=== PATIENT | male | born 1975 | race American Indian/Alaskan Native ===

== ENCOUNTER 2019-04-27 22:07 | Emergency (ER) | payer SELFPAY ==
[2019-04-27 23:09] LABS: Basophils % (Auto) 0.5 % (0.0-1.8); Eosinophils # (Auto) 0.1 K/mm3 (0.0-0.4); Eosinophils % (Auto) 0.9 % (0.0-4.3); Hematocrit 44.2 % (35.5-45.6); Hemoglobin 14.8 gm/dl (11.8-15.2); Lymphocytes # (Auto) 1.6 K/mm3 (1.2-5.4); Lymphocytes % (Auto) 20.8 % (13.4-35.0); Mean Corpuscular HGB Conc 34 % (32-34); Mean Corpuscular Volume 84 fl (84-94); Monocytes # (Auto) 0.9 K/mm3 (0.0-0.8); Monocytes % (Auto) 11.7 % (0.0-7.3); Platelet Count 183 K/mm3 (140-440); Red Blood Count 5.26 M/mm3 (3.65-5.03); Red Cell Distribution Width 14.8 % (13.2-15.2)
[2019-04-27 23:31] LABS: BUN/Creatinine Ratio 9; Blood Urea Nitrogen 12 mg/dL (9-20); Calcium 9.2 mg/dL (8.4-10.2); Hemolysis Index 3
[2019-04-28] MEDS ORDERED: IBUPROFEN 800 MG TAB PO ONE (01:00)
[2019-04-28] MEDS ORDERED: predniSONE 20 MG TAB PO ONE (01:02)
--- NOTE | 2019-04-28 01:09 | Emergency Department Report ---
ED Extremity Problem HPI - General Chief complaint: Extremity Injury, Lower Stated complaint: BILATERAL FOOT PAIN Time Seen by Provider: 04/28/19 00:59 Source: patient Mode of arrival: Ambulatory Limitations: No Limitations - History of Present Illness Initial comments: 43-year-old -Citizen Of [place] male presents to the emergency room complaining of bilateral feet pain and swelling 2 days. Patient reports that the right foot started to have pain 2 days ago and has gotten worse and now the left foot mostly at the great toe on the bottom is worse with pain and walking. Patient last took ibuprofen Wednesday night at 10:30. Patient denies any past medical history currently takes no medications on a daily basis and has no known drug allergies. Patient states he drinks plenty of Gatorade. Patient denies any recent alcohol use read needs or seafood. Patient does admit to traveling vehicle. MD Complaint: extremity pain, extremity swelling - Related Data Previous Rx's Medication Instructions Recorded Last Taken Type Ibuprofen [Motrin 800 MG tab] 800 mg PO Q8HR PRN #30 tablet 04/28/19 Unknown Rx predniSONE [Deltasone] 40 mg PO QDAY #20 tab 04/28/19 Unknown Rx Allergies Allergy/AdvReac Type Severity Reaction Status Date / Time No Known Allergies Allergy Unverified 04/27/19 22:44 ED Review of Systems ROS: Stated complaint: BILATERAL FOOT PAIN Other details as noted in HPI ED Past Medical Hx - Past Medical History Previous Medical History?: No - Surgical History Past Surgical History?: No - Social History Smoking Status: Never Smoker Substance Use Type: None - Medications Home Medications: Home Medications Medication Instructions Recorded Confirmed Last Taken Type Ibuprofen [Motrin 800 MG tab] 800 mg PO Q8HR PRN #30 tablet 04/28/19 Unknown Rx predniSONE [Deltasone] 40 mg PO QDAY #20 tab 04/28/19 Unknown Rx ED Physical Exam - General Limitations: No Limitations General appearance: alert, in no apparent distress - Head Head exam: Present: atraumatic, normocephalic - Eye Eye exam: Present: normal appearance - ENT ENT exam: Present: mucous membranes moist - Expanded Lower Extremity Exam Left Hip exam: Present: normal inspection, full ROM Upper Leg exam: Present: normal inspection, full ROM Knee exam: Present: normal inspection, full ROM Foot/Toe exam: Present: full ROM, tenderness, swelling, erythema (great toe) Neuro vascular tendon exam: Present: no vascular compromise Right Hip exam: Present: normal inspection Upper Leg exam: Present: normal inspection Knee exam: Present: normal inspection Lower Leg exam: Present: normal inspection Ankle exam: Present: normal inspection Foot/Toe exam: Present: swelling (mild non pitted) Neuro vascular tendon exam: Present: no vascular compromise - Neurological Exam Neurological exam: Present: alert, oriented X3 - Psychiatric Psychiatric exam: Present: normal affect, normal mood - Skin Skin exam: Present: warm, dry, intact, normal color. Absent: rash ED Course Vital Signs 04/27/19 04/28/19 22:13 02:19 Temperature 100.9 F H 98.4 F Pulse Rate 103 H 81 Respiratory 20 17 Rate Blood Pressure 189/112 Blood Pressure 135/86 [Left] O2 Sat by Pulse 98 97 Oximetry ED Medical Decision Making - Lab Data Result diagrams: 04/27/19 22:55 04/27/19 22:55 - Radiology Data Radiology results: report reviewed Patient: MALOU MANCINI MR#: [id number] : 1975 Acct:[id number] Age/Sex: 43 / M ADM Date: 04/27/19 Loc: ED Attending Dr: Ordering Physician: PANCHITO QUINONES Date of Service: 04/28/19 Procedure(s): XR foot 2V LT Accession Number(s): [id number] cc: PANCHITO QUINONES Fluoro Time In Minutes: XR foot 2V LT INDICATION / CLINICAL INFORMATION: pain and swelling. COMPARISON: None available. FINDINGS: BONES/JOINT(S): No acute fracture or subluxation. No significant degenerative changes. SOFT TISSUES: Mild diffuse soft tissue swelling. No radiopaque foreign bodies or soft tissue gas. ADDITIONAL FINDINGS: None. Signer Name: Humble Kim MD Signed: 04/28/2019 2:07 AM Workstation Name: [id number] Transcribed By: WANDA Dictated By: Humble Kim MD Electronically Authenticated By: Humble Kim MD Signed Date/Time: 04/28/19206 DD/ 6 TD/TT: - Medical Decision Making 43-year-old -Citizen Of [place] male presents to the emergency room complaining of bilateral feet pain and swelling 2 days. Patient reports that the right foot started to have pain 2 days ago and has gotten worse and now the left foot mostly at the great toe on the bottom is worse with pain and walking. Patient last took ibuprofen Wednesday night at 10:30. Patient denies any past medical history currently takes no medications on a daily basis and has no known drug allergies. Patient states he drinks plenty of Gatorade. Patient denies any recent alcohol use read needs or seafood. Patient does admit to traveling vehicle. Labs have been ordered. No elevated BNP. X-ray of left foot has been ordered concern for stress fracture. Patient be given ibuprofen 800 mg for pain and fever. Critical care attestation.: If time is entered above; I have spent that time in minutes in the direct care of this critically ill patient, excluding procedure time. ED Disposition Clinical Impression: Foot pain, bilateral, Gout Disposition: TO HOME OR SELFCARE Is pt being admited?: No Does the pt Need Aspirin: No Condition: Stable Instructions: Acute Gouty Arthritis (ED) Prescriptions: predniSONE [Deltasone] 40 mg PO QDAY #20 tab Ibuprofen [Motrin 800 MG tab] 800 mg PO Q8HR PRN #30 tablet PRN Reason: Pain , Severe (7-10) Referrals: PRIMARY CARE, [Referring] - 3-5 Days LINDSEY BAEZ DO [Staff Physician] - 3-5 Days
--- NOTE | 2019-04-28 02:11 | XRay Report ---
XR foot 2V LT INDICATION / CLINICAL INFORMATION: pain and swelling. COMPARISON: None available. FINDINGS: BONES/JOINT(S): No acute fracture or subluxation. No significant degenerative changes. SOFT TISSUES: Mild diffuse soft tissue swelling. No radiopaque foreign bodies or soft tissue gas. ADDITIONAL FINDINGS: None. Signer Name: Humble Kim MD Signed: 04/28/2019 2:07 AM Workstation Name: [id number]
[2019-04-28 02:23] VITALS: BP 135/86
== END 2019-04-28 02:56 | disposition home or self-care (01) ==
LOC: ED 22:07
DX: M10.9 Gout, unspecified (principal)
CPT/HCPCS: 36415; 73620; 80048; 83880; 85025; 99284; J7512

== ENCOUNTER 2020-08-05 20:17 | Emergency (ER) | payer SELFPAY ==
[2020-08-05 20:43] VITALS: BP 160/99
--- NOTE | 2020-08-05 20:57 | Emergency Department Report ---
Chief Complaint: Neck Pain/Injury Stated Complaint: NECK/SHOULDER PAIN Time Seen by Provider: 08/05/20 20:46 - HPI History of Present Illness: 45-year-old -[place] male presents to the emergency room for a 3-day history of shoulder pains status post digging him truck out of this note. Patient states that the ibuprofen had helped but he wanted to 2 doses. Patient was only taken 200 mg for that dose. Patient denies any direct impact no fall. Patient denies any numbness to his fingers no headache. - Exam Vital Signs: Vital Signs 08/05/20 20:42 Temperature 98.7 F Pulse Rate 74 Respiratory 18 Rate Blood Pressure 160/99 O2 Sat by Pulse 95 Oximetry Physical Exam: Alert and oriented x3 no acute distress nontoxic in appearance Right side trapezius tenderness full range of motion of the shoulder no cervical tenderness policy officer are intact. Ambulatory without difficulty MSE screening note: Focused history and physical exam performed. Due to findings the following was ordered: 45-year-old -[place] male presents to the emergency room for a 3-day history of shoulder pains status post digging him truck out of this note. Patient states that the ibuprofen had helped but he wanted to 2 doses. Patient was only taken 200 mg for that dose. Patient denies any direct impact no fall. Patient denies any numbness to his fingers no headache. Discussed with patient he has a muscle strain of his right shoulder area mostly at the trapezius recommend ibuprofen Aleve or Tylenol. Also discussed about using some [id number] Clifford balm. Follow-up with her primary care provider. ED Disposition for MSE Disposition: Z- MED SCREENING EXAM-LEFT Is pt being admited?: No Does the pt Need Aspirin: No Condition: Stable Additional Instructions: Recommend Ibuprofen or aleve for pain. Referrals: ANGEL BURGESS MD [Staff Physician] - 3-5 Days Forms: Work/School Release Form(ED)
== END 2020-08-05 20:55 | disposition left against medical advice (07) ==
LOC: ED 20:17
DX: M54.2 Cervicalgia (principal); Z53.21 Procedure and treatment not carried out due to patient leaving prior to being seen by health care provider

== ENCOUNTER 2020-10-29 13:36 | Emergency (ER) | payer SELFPAY ==
--- NOTE | 2020-10-29 15:49 | XRay Report ---
LEFT KNEE 3 VIEWS INDICATION / CLINICAL INFORMATION: left posterior knee pain COMPARISON: None available. FINDINGS: BONES / JOINT(S): No acute fracture or subluxation. 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 SOFT TISSUES: No significant abnormality. ADDITIONAL FINDINGS: None. Signer Name: Andre Kennedy MD Signed: 10/29/2020 3:44 PM Workstation Name: [id number]
[2020-10-29 16:08] LABS: Basophils % (Auto) 0.3 % (0.0-1.8); Eosinophils # (Auto) 0.1 K/mm3 (0.0-0.4); Eosinophils % (Auto) 0.8 % (0.0-4.3); Hemoglobin 15.5 gm/dl (11.8-15.2); Lymphocytes # (Auto) 1.9 K/mm3 (1.2-5.4); Lymphocytes % (Auto) 24.2 % (13.4-35.0); Mean Corpuscular HGB Conc 34 % (32-34); Mean Corpuscular Volume 84 fl (84-94); Monocytes % (Auto) 12.1 % (0.0-7.3); Platelet Count 256 K/mm3 (140-440); Red Blood Count 5.45 M/mm3 (3.65-5.03); Red Cell Distribution Width 14.6 % (13.2-15.2)
--- NOTE | 2020-10-29 16:11 | Vascular Lab Report ---
DUPLEX DOPPLER LOWER EXTREMITY VEINS, LEFT INDICATION: left posterior knee pain, swelling. TECHNIQUE: Duplex doppler imaging was performed through the veins of the left lower extremity using venous compression and other maneuvers. COMPARISON: No relevant prior imaging study available. FINDINGS: Left Common femoral vein: Negative. Left Superficial femoral vein: Negative. Left Popliteal vein: Negative. Left Calf veins: Negative. Additional findings: None. IMPRESSION: No sonographic evidence for DVT in the left lower extremity. Signer Name: Roland Og Jr, MD Signed: 10/29/2020 4:06 PM Workstation Name: [id number]
[2020-10-29 16:16] LABS: Alanine Aminotransferase 12 units/L (7-56); Albumin 4.2 g/dL (3.9-5); BUN/Creatinine Ratio 10; Blood Urea Nitrogen 13 mg/dL (9-20); Calcium 9.5 mg/dL (8.4-10.2); Hemolysis Index 6; Uric Acid 8.8 mg/dL (3.5-7.6)
--- NOTE | 2020-10-29 16:46 | Emergency Department Report ---
ED Extremity Problem HPI - General Chief complaint: Extremity Injury, Lower Stated complaint: LT KNEE PAIN Time Seen by Provider: 10/29/20 15:07 Source: patient Mode of arrival: Ambulatory Limitations: No Limitations - History of Present Illness Initial comments: Patient is a 45-year-old male presents emergency room with complaints of left knee pain and left knee swelling that began 3 days ago. Patient denies any fall or injury. He denies ever having this in the past. He denies any calf pain, chest pain, shortness of breath. He denies any recent travel, recent surgery, recent immobilization. He denies any numbness or weakness. He is ambulatory. He denies any past medical history. No allergies to medications. He denies any history of gout. - Related Data Previous Rx's Medication Instructions Recorded Last Taken Type Ibuprofen [Motrin 800 MG tab] 800 mg PO Q8HR PRN #30 tablet 04/28/19 Unknown Rx predniSONE 40 mg PO QDAY #20 tab 04/28/19 Unknown Rx Colchicine 0.6 mg PO ONCE 1 Days #3 tablet 10/29/20 Unknown Rx Naproxen [EC-Naprosyn] 500 mg PO BID PRN #20 tablet. 10/29/20 Unknown Rx Prednisone [predniSONE 10 mg 10 mg PO .TAPER #1 tab.ds.pk 10/29/20 Unknown Rx (6-Day Pack, 21 Tabs)] Allergies Allergy/AdvReac Type Severity Reaction Status Date / Time No Known Allergies Allergy Verified 10/29/20 14:55 ED Review of Systems ROS: Stated complaint: LT KNEE PAIN Other details as noted in HPI Comment: All other systems reviewed and negative ED Past Medical Hx - Past Medical History Previous Medical History?: No - Surgical History Past Surgical History?: No - Social History Smoking Status: Never Smoker Substance Use Type: None - Medications Home Medications: Home Medications Medication Instructions Recorded Confirmed Last Taken Type Ibuprofen [Motrin 800 MG tab] 800 mg PO Q8HR PRN #30 tablet 04/28/19 Unknown Rx predniSONE 40 mg PO QDAY #20 tab 04/28/19 Unknown Rx Colchicine 0.6 mg PO ONCE 1 Days #3 tablet 10/29/20 Unknown Rx Naproxen [EC-Naprosyn] 500 mg PO BID PRN #20 tablet. 10/29/20 Unknown Rx Prednisone [predniSONE 10 mg 10 mg PO .TAPER #1 tab.ds.pk 10/29/20 Unknown Rx (6-Day Pack, 21 Tabs)] ED Physical Exam - General Limitations: No Limitations General appearance: alert, in no apparent distress - Head Head exam: Present: atraumatic, normocephalic - Eye Eye exam: Present: normal appearance - ENT ENT exam: Present: mucous membranes moist - Respiratory Respiratory exam: Absent: respiratory distress, accessory muscle use - Extremities Exam Extremities exam: Present: other (ttp to the left posterior knee, mild edema present, mild increased warmth, no erythema, FROM of the LLE, no calf ttp, negative homans sign, neurovascularly intact) - Neurological Exam Neurological exam: Present: alert, oriented X3 - Psychiatric Psychiatric exam: Present: normal affect, normal mood - Skin Skin exam: Present: warm, dry, intact ED Course Vital Signs 10/29/20 10/29/20 10/29/20 14:59 15:00 16:51 Temperature 98.2 F Pulse Rate 91 H 87 Respiratory 20 Rate Blood Pressure 161/103 Blood Pressure 145/92 [Right] O2 Sat by Pulse 99 99 Oximetry ED Medical Decision Making - Lab Data Result diagrams: 10/29/20 15:23 10/29/20 15:23 Lab Results 10/29/20 10/29/20 Range/Units 15:23 15:23 WBC 7.9 (4.5-11.0) K/mm3 RBC 5.45 H (3.65-5.03) M/mm3 Hgb 15.5 H (11.8-15.2) gm/dl Hct 46.0 H (35.5-45.6) % MCV 84 (84-94) fl MCH 28 (28-32) pg MCHC 34 (32-34) % RDW 14.6 (13.2-15.2) % Plt Count 256 (140-440) K/mm3 Lymph % (Auto) 24.2 (13.4-35.0) % [place] % (Auto) 12.1 H (0.0-7.3) % Eos % (Auto) 0.8 (0.0-4.3) % Baso % (Auto) 0.3 (0.0-1.8) % Lymph # (Auto) 1.9 (1.2-5.4) K/mm3 [place] # (Auto) 1.0 H (0.0-0.8) K/mm3 Eos # (Auto) 0.1 (0.0-0.4) K/mm3 Baso # (Auto) 0.0 (0.0-0.1) K/mm3 Seg Neutrophils % 62.6 (40.0-70.0) % Seg Neutrophils # 5.0 (1.8-7.7) K/mm3 Sodium 142 (137-145) mmol/L Potassium 3.6 (3.6-5.0) mmol/L Chloride 107.6 H (98-107) mmol/L Carbon Dioxide 25 (22-30) mmol/L Anion Gap 13 mmol/L BUN 13 (9-20) mg/dL Creatinine 1.3 (0.8-1.3) mg/dL Estimated GFR > 60 ml/min BUN/Creatinine Ratio 10 % Glucose 125 H (75-100) mg/dL Uric Acid 8.8 H (3.5-7.6) mg/dL Calcium 9.5 (8.4-10.2) mg/dL Total Bilirubin 0.30 (0.1-1.2) mg/dL AST 14 (5-40) units/L ALT 12 (7-56) units/L Alkaline Phosphatase 67 (35-129) units/L Total Creatine Kinase 413 H (55-170) units/L Total Protein 7.6 (6.3-8.2) g/dL Albumin 4.2 (3.9-5) g/dL Albumin/Globulin Ratio 1.2 % Vital Signs 10/29/20 10/29/20 10/29/20 14:59 15:00 16:51 Temperature 98.2 F Pulse Rate 91 H 87 Respiratory 20 Rate Blood Pressure 161/103 Blood Pressure 145/92 [Right] O2 Sat by Pulse 99 99 Oximetry - Radiology Data Radiology results: report reviewed Ordering Physician: PANCHITO THOMAS Date of Service: 10/29/20 Procedure(s): XR knee 3V LT Accession Number(s): [id number] cc: PANCHITO THOMAS Fluoro Time In Minutes: LEFT KNEE 3 VIEWS INDICATION / CLINICAL INFORMATION: left posterior knee pain COMPARISON: None available. FINDINGS: BONES / JOINT(S): No acute fracture or subluxation. 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 SOFT TISSUES: No significant abnormality. ADDITIONAL FINDINGS: None. Signer Name: Andre Kennedy MD Signed: 10/29/2020 3:44 PM Workstation Name: [id number] Transcribed By: ES Dictated By: Andre Kennedy MD Electronically Authenticated By: Andre Kennedy MD Signed Date/Time: 10/29/20 1544 DD/ 1543 TD/TT: Print Ordering Physician: PANCHITO THOMAS Date of Service: 10/29/20 Procedure(s): VL venous duplex LE LT Accession Number(s): [id number] cc: PANCHITO THOMAS DUPLEX DOPPLER LOWER EXTREMITY VEINS, LEFT INDICATION: left posterior knee pain, swelling. TECHNIQUE: Duplex doppler imaging was performed through the veins of the left lower extremity using venous compression and other maneuvers. COMPARISON: No relevant prior imaging study available. FINDINGS: Left Common femoral vein: Negative. Left Superficial femoral vein: Negative. Left Popliteal vein: Negative. Left Calf veins: Negative. Additional findings: None. IMPRESSION: No sonographic evidence for DVT in the left lower extremity. Signer Name: Roland Og Jr, MD Signed: 10/29/2020 4:06 PM Workstation Name: [id number] Transcribed By: HAI Dictated By: ROLAND OG JR, MD Electronically Authenticated By: ROLAND OG JR, MD Signed Date/Time: 10/29/20 1606 DD/ 1606 TD/TT: - Medical Decision Making Patient is a 45-year-old male presents emergency room with complaints of left knee pain and left knee swelling that began 3 days ago. Patient denies any fall or injury. He denies ever having this in the past. He denies any calf pain, chest pain, shortness of breath. He denies any recent travel, recent surgery, recent immobilization. He denies any numbness or weakness. He is ambulatory. He denies any past medical history. No allergies to medications. He denies any history of gout. Vitals are stable. On exam:ttp to the left posterior knee, mild edema present, mild increased warmth, no erythema, FROM of the LLE, no calf ttp, negative homans sign, neurovascularly intact. XR left knee: BONES / JOINT(S): No acute fracture or subluxation. Mild DJD greatest at the patellofemo ral joint. SOFT TISSUES: No significant abnormality. ADDITIONAL FINDINGS: None. US LLE: No sonographic evidence for DVT in the left lower extremity. Lab significant for elevated uric acid. Mild elevation in CK of 400, discussed to increase oral intake. Symptoms appear most consistent with acute gout flare. Discussed all results with patient answered questions. Patient has no clinical signs of septic joint. Patient given prescription for naproxen, colchicine, prednisone. Advised patient Please take medication as prescribed. Please follow-up with a primary care doctor. Return to emergency room for new or worsening symptoms. Please follow the diet for gout. - Differential Diagnosis Gout, arthritis, RA, Pinto's cyst, strain, sprain, fx, dislocation, DVT Critical care attestation.: If time is entered above; I have spent that time in minutes in the direct care of this critically ill patient, excluding procedure time. ED Disposition Clinical Impression: Arthritis Left knee pain Qualifiers: Chronicity: acute Qualified Code(s): M25.562 - Pain in left knee Gout Qualifiers: Gout site: knee Gout etiology: unspecified cause Chronicity: acute Laterality: left Qualified Code(s): M10.9 - Gout, unspecified Disposition: - TO HOME OR SELFCARE Is pt being admited?: No Does the pt Need Aspirin: No Condition: Stable Instructions: Low-Purine Eating Plan, Osteoarthritis Additional Instructions: Please take medication as prescribed. Please follow-up with a primary care doctor. Return to emergency room for new or worsening symptoms. Please follow the diet for gout. Prescriptions: Colchicine 0.6 mg PO ONCE 1 Days #3 tablet Naproxen [EC-Naprosyn] 500 mg PO BID PRN #20 tablet.dr PRHanh Reason: pain Prednisone [predniSONE 10 mg (6-Day Pack, 21 Tabs)] 10 mg PO .TAPER #1 tab.ds.pk Referrals: IVANNA PATEL MD [Primary Care Provider] - 2-3 Days Time of Disposition: 16:45 Print Language: GERMAN
[2020-10-29 16:52] VITALS: BP 145/92
== END 2020-10-29 16:53 | disposition home or self-care (01) ==
LOC: ED 13:36
DX: M10.9 Gout, unspecified (principal); M17.12 Unilateral primary osteoarthritis, left knee; Z79.899 Other long term (current) drug therapy
CPT/HCPCS: 36415; 80053; 82550; 84550; 85025